=== PATIENT | female | born 1955 | race Caucasian/White ===

== ENCOUNTER 2016-07-14 20:13 | Emergency (ER) | payer BC, OTHER ==
[2016-07-14] MEDS ORDERED: ACETAMINOPHEN 500 MG TABLET PO ONE (20:30)
[2016-07-14] MEDS ORDERED: IBUPROFEN 600 MG TABLET PO ONE (20:34)
--- NOTE | 2016-07-14 21:26 | Emergency Department Record ---
History of Present Illness - General Chief Complaint: Fall Injury Stated Complaint: FELL Time Seen by Provider: 07/14/16 20:19 Source: Patient Mode of Arrival: Ambulatory Limitations: No limitations - History of Present Illness Initial Comments: pt was out folding clothes when she backed up and fell backwards hitting her head on cement. she injured her head and her l arm. no loc MD Complaint: Fall Onset/Timin -: Minutes(s) Fall From: Standing When Fall Occurred: Just prior to arrival Fall Witnessed: Yes, by bystander Place Fall Occurred: Work Loss of Consciousness: None Prolonged Down Time?: No Symptoms Prior to Fall: None Location: Head, Buttocks, Other Location - Extremities: Left: Forearm Severity: Mild Quality: Other Associated Symptoms: Denies - [place] Coma Scale Eye Response: (4) Open spontaneously Motor Response: (6) Obeys commands Verbal Response: (5) Oriented Lehr Total: 15 - Related Data Home Medications Medication Instructions Recorded Confirmed Last Taken Losartan/Hct 100-25 100 mg PO DAILY 11/15/13 07/14/16 07/14/16 Furosemide [Lasix] 20 mg PO DAILY 09/24/14 07/14/16 07/14/16 Tiotropium [place] [Spiriva] 18 mcg IH Q6HR PRN 09/24/14 07/14/16 07/14/16 Previous Rx's Medication Instructions Recorded Cyclobenzaprine HCl [Flexeril] 10 mg PO TID PRN #30 tablet 10/13/15 Allergies Allergy/AdvReac Type Severity Reaction Status Date / Time No Known Drug Intolerances Allergy Unknown NONE Verified 10/09/15 11:46 Travel Screening - Travel/Exposure Within Last 30 Days Have you traveled within the last 30 days?: No - Travel Symptoms Symptom Screening: None Review of Systems Reviewed: No additional complaints except as noted below Constitutional: Reports: As per HPI. Denies: Chills, Fever, Malaise, Night sweats, Weakness, Weight change Eyes: Reports: As per HPI. Denies: Eye discharge, Eye pain, Photophobia, Vision change ENT: Reports: As per HPI. Denies: Congestion, Dental pain, Ear pain, Epistaxis , Hearing loss, Throat pain Respiratory: Reports: As per HPI. Denies: Cough, Dyspnea, Hemoptysis, Stridor, Wheezes Cardiovascular: Reports: As per HPI. Denies: Arrhythmia, Chest pain, Dyspnea on exertion, Edema, Murmurs, Orthopnea, Palpitations, Paroxysmal nocturnal dyspnea, Rheumatic Fever, Syncope Endocrine: Reports: As per HPI. Denies: Fatigue, Heat or cold intolerance, Polydipsia, Polyuria Gastrointestinal: Reports: As per HPI. Denies: Abdominal pain, Constipation, Diarrhea, Hematemesis, Hematochezia, Melena, Nausea, Vomiting Genitourinary: Reports: As per HPI. Denies: Abnormal menses, Discharge, Dyspareunia, Dysuria, Frequency, Hematuria, Incontinence, Retention, Urgency Musculoskeletal: Reports: As per HPI. Denies: Arthralgia, Back pain, Gout, Joint swelling, Myalgia, Neck pain Skin: Reports: As per HPI. Denies: Bruising, Change in color, Change in hair/ nails, Lesions, Pruritus, Rash Neurological: Reports: As per HPI. Denies: Abnormal gait, Confusion, Headache, Numbness, Paresthesias, Seizure, Tingling, Tremors, Vertigo, Weakness Psychiatric: Reports: As per HPI. Denies: Anxiety, Auditory hallucinations, Depression, Homicidal thoughts, Suicidal thoughts, Visual hallucinations Hematological/Lymphatic: Reports: As per HPI. Denies: Anemia, Blood Clots, Easy bleeding, Easy bruising, Swollen glands Past Medical History - SOCIAL HISTORY Smoking Status: Light tobacco smoker (<10/day) Alcohol Use: None Drug Use: None - RESPIRATORY Hx Respiratory Disorders: No - CARDIOVASCULAR Hx Cardio Disorders: Yes Hx Hypertension: Yes - NEURO Hx Neuro Disorders: No - GI Hx GI Disorders: No - Hx Genitourinary Disorders: No - ENDOCRINE Hx Endocrine Disorders: No - MUSCULOSKELETAL Hx Musculoskeletal Disorders: No - PSYCH Hx Psych Problems: No - HEMATOLOGY/ONCOLOGY Hx Hematology/Oncology Disorders: No Family Medical History Any Significant Family History?: Yes Hx Alcohol Use: Father Hx Diabetes: Father Hx HTN: Mother Physical Exam - General General Appearance: Alert, Oriented x3, Cooperative, Mild distress - Head Head exam: Normal inspection Head exam detail: Hematoma - Eye Eye exam: Normal appearance, PERRL, EOMI Pupils: Normal accommodation - ENT ENT exam: Normal exam, Mucous membranes moist, Normal external ear exam, Normal orophraynx Ear exam: Normal external inspection. negative: External canal tenderness Nasal Exam: Normal inspection. negative: Discharge, Sinus tenderness Mouth exam: Normal external inspection, Tongue normal Teeth exam: Normal inspection. negative: Dental caries Throat exam: Normal inspection. negative: Tonsillar erythema, Tonsillar exudate - Neck Neck exam: Normal inspection, Full ROM. negative: Tenderness - Respiratory Respiratory exam: Normal lung sounds bilaterally. negative: Respiratory distress - Cardiovascular Cardiovascular Exam: Regular rate, Normal rhythm, Normal heart sounds - GI/Abdominal GI/Abdominal exam: Soft, Normal bowel sounds. negative: Tenderness - Rectal Rectal exam: Deferred - exam: Deferred - Extremities Extremities exam: Normal inspection, Full ROM, Normal capillary refill, Tenderness (of l forearm w abrasion and ecchymosis) - Back Back exam: Reports: Normal inspection, Full ROM. Denies: Muscle spasm, Rash noted, Tenderness - Neurological Neurological exam: Alert, CN II-XII intact, Normal gait, Oriented X3 - Psychiatric Psychiatric exam: Normal affect, Normal mood - Skin Skin exam: Dry, Intact, Normal color, Warm Course Vital Signs 07/14/16 20:19 Temperature 98.8 F Pulse Rate 101 H Respiratory 20 Rate Blood Pressure 138/79 Pulse Ox 93 L Medical Decision Making - Management Options MDM Management: Additional Work-up Planned (e.g. ADM/Transfer/OP Study) - Data Complexity MDM Data: X-Ray Ordered and/or Reviewed - Radiology Data Radiology results: Report reviewed, Image reviewed Disposition Disposition: Discharge Clinical Impression: Head injury Qualifiers: Encounter type: initial encounter Qualified Code(s): S09.90XA - Unspecified injury of head, initial encounter Contusion of arm, left Qualifiers: Encounter type: initial encounter Qualified Code(s): S40.022A - Contusion of left upper arm, initial encounter Disposition: Home, Self-Care Condition: (1) Good Instructions: Minor Head Injury (ED), Contusion in Adults (ED) Additional Instructions: follow up with occupational health and family doctor. return sooner if worse. tylenol or motrin for pain Forms: Patient Portal Access
== END 2016-07-14 21:34 | disposition home or self-care (01) ==
LOC: ER 20:13
DX: S09.90XA Unspecified injury of head, initial encounter (principal); S40.022A Contusion of left upper arm, initial encounter; W01.0XXA Fall on same level from slipping, tripping and stumbling without subsequent striking against object, initial encounter; Y93.E2 Activity, laundry; Y92.239 Unspecified place in hospital as the place of occurrence of the external cause; Y99.0 Civilian activity done for income or pay
CPT/HCPCS: 70450; 99283

== ENCOUNTER 2016-07-16 14:20 | Emergency (ER) | payer OTHER ==
--- NOTE | 2016-07-16 14:33 | Emergency Department Record ---
History of Present Illness - General Stated Complaint: LEFT ARM PAIN FROM FALL Time Seen by Provider: 07/16/16 14:25 Source: Patient Mode of Arrival: Ambulatory Limitations: No limitations - History of Present Illness Initial Comments: 60 yo female presents after a fall at work on 07/14/16. She tripped on a sidewalk landing hitting her head and left arm. No LOC. She landed on her left forearm as well. Since her initial visit her left forearm has continued to ache and bruise. She had a HCT during the initial visit but no left UE imaging. No weakness or numbness. No abnormal coolness. She is not on anti- coagulants. Complaint: Fall -: Days(s) (2) Fall From: Standing When Fall Occurred: Other Fall Witnessed: Yes, by bystander Place Fall Occurred: Work Loss of Consciousness: None Prolonged Down Time?: No Symptoms Prior to Fall: None Location: Head, Other Location - Extremities: Left: Forearm Quality: Aching Associated Symptoms: Denies - [place] Coma Scale Eye Response: (4) Open spontaneously Motor Response: (6) Obeys commands Verbal Response: (5) Oriented Egan Total: 15 - Related Data Home Medications Medication Instructions Recorded Confirmed Last Taken Losartan/Hct 100-25 100 mg PO DAILY 11/15/13 07/16/16 07/16/16 Furosemide [Lasix] 20 mg PO DAILY 09/24/14 07/16/16 07/16/16 Tiotropium [place] [Spiriva] 18 mcg IH Q6HR PRN 09/24/14 07/16/16 07/16/16 Previous Rx's Medication Instructions Recorded Cyclobenzaprine HCl [Flexeril] 10 mg PO TID PRN #30 tablet 10/13/15 Allergies Allergy/AdvReac Type Severity Reaction Status Date / Time No Known Drug Intolerances Allergy Unknown NONE Verified 07/16/16 14:25 Review of Systems Constitutional: Denies: Chills, Fever, Malaise, Weakness Eyes: Denies: Eye discharge ENT: Denies: Congestion, Throat pain Respiratory: Denies: Cough Cardiovascular: Denies: Chest pain, Palpitations, Syncope Endocrine: Denies: Fatigue Gastrointestinal: Denies: Abdominal pain, Diarrhea, Nausea, Vomiting Genitourinary: Denies: Dysuria, Urgency Musculoskeletal: Reports: Arthralgia, Joint swelling, Myalgia, Neck pain Skin: Reports: As per HPI, Bruising Neurological: Denies: Confusion, Headache, Numbness, Tingling, Tremors, Vertigo , Weakness Psychiatric: Denies: Anxiety Hematological/Lymphatic: Denies: Blood Clots, Easy bleeding, Easy bruising, Swollen glands Past Medical History - SOCIAL HISTORY Smoking Status: Light tobacco smoker (<10/day) Drug Use: None - RESPIRATORY Hx Respiratory Disorders: No - CARDIOVASCULAR Hx Cardio Disorders: Yes Hx Hypertension: Yes - NEURO Hx Neuro Disorders: No - GI Hx GI Disorders: No - Hx Genitourinary Disorders: No - ENDOCRINE Hx Endocrine Disorders: No - MUSCULOSKELETAL Hx Musculoskeletal Disorders: No - PSYCH Hx Psych Problems: No - HEMATOLOGY/ONCOLOGY Hx Hematology/Oncology Disorders: No Family Medical History Hx Alcohol Use: Father Hx Diabetes: Father Hx HTN: Mother Physical Exam - General General Appearance: Alert, Oriented x3, Cooperative Limitations: No limitations - Head Head exam: negative: Atraumatic - Eye Eye exam: PERRL. negative: Conjunctival injection, Scleral icterus - ENT ENT exam: Normal exam Ear exam: Normal external inspection Nasal Exam: Normal inspection Mouth exam: Normal external inspection Teeth exam: Normal inspection Throat exam: Normal inspection - Neck Neck exam: Normal inspection. negative: Tenderness - Respiratory Respiratory exam: Normal lung sounds bilaterally. negative: Respiratory distress - Cardiovascular Cardiovascular Exam: Regular rate, Normal rhythm, Normal heart sounds Peripheral Pulses: 2+: Radial (R) - GI/Abdominal GI/Abdominal exam: Soft - Rectal Rectal exam: Deferred - exam: Deferred - Extremities Extremities exam: Joint swelling, Normal capillary refill, Tenderness. negative : Normal inspection Image of Full Body: 1 - brusing and soft tissue tenderness, full ROM of the albow and werist, no pain with supination or pronation, wrist with full flexion and extension without pain. bruising noted. Strong radial pulse, brisk cap refill. Soft muscle compartment. sensation is intact. - Back Back exam: Reports: Normal inspection, Full ROM. Denies: CVA tenderness (R), CVA tenderness (L), Muscle spasm, Paraspinal tenderness, Rash noted, Tenderness , Vertebral tenderness - Neurological Neurological exam: Alert, Normal gait, Oriented X3 - Psychiatric Psychiatric exam: Normal affect, Normal mood. negative: Anxious, Manic - Skin Skin exam: Dry, Intact, Warm. negative: Normal color (bruising) Course - Reevaluation(s) Reevaluation #1: 07/16/16 14:30 HCT from 07/14 reviewed XR ordered of the left UE Reevaluation #2: No sign of compartment syndrome. Joint above and below forearm full ROM 07/16/16 14:35 Reevaluation #3: The XR was reviewed No acute fracture seen on prelim DC with no lifting or use today. 07/16/16 15:08 Disposition Disposition: Discharge Clinical Impression: Contusion of forearm, left Qualifiers: Encounter type: initial encounter Qualified Code(s): S50.12XA - Contusion of left forearm, initial encounter Disposition: Home, Self-Care Return To Work/School Note Provided: Yes Condition: (1) Good Instructions: Contusion in Adults (ED) Additional Instructions: Elevate the forearm to minimize swelling Return if you have weakness, numbness or any increase in swelling Avoid over use until pain free Off work remainder of today. No lifting or use of the left arm. Time of Disposition: 15:09
== END 2016-07-16 15:05 | disposition home or self-care (01) ==
LOC: ER 14:20
DX: S50.12XA Contusion of left forearm, initial encounter (principal); W01.0XXA Fall on same level from slipping, tripping and stumbling without subsequent striking against object, initial encounter; Y93.E2 Activity, laundry; Y92.239 Unspecified place in hospital as the place of occurrence of the external cause
CPT/HCPCS: 99283

== ENCOUNTER 2016-09-23 13:31 | Emergency (ER) | payer BC ==
[2016-09-23] MEDS ORDERED: KETOROLAC 30 MG/ML VIAL IM ONE (14:31)
[2016-09-23] MEDS ORDERED: HYDROMORPHONE HCL 1 MG/ML CPJ IM ONE (14:31)
[2016-09-23] MEDS ORDERED: PROMETHAZINE HCL 25 MG/ML VIAL IM ONE (14:31)
[2016-09-23] MEDS ORDERED: DIAZEPAM 5 MG/1 ML TUBX IM ONE (14:31)
--- NOTE | 2016-09-23 15:42 | Emergency Department Record ---
History of Present Illness - General Chief Complaint: Back Pain/Injury Stated Complaint: BACK PAIN Time Seen by Provider: 09/23/16 14:28 Source: Patient Mode of Arrival: Ambulatory Limitations: No limitations - History of Present Illness Initial Comments: pt injured back in a fall earlier this year. she is back to work when it has once again flared up. pain is in lower back and radiates down r leg. no problems w bowel or bladder. no numbness MD Complaint: Back pain, Back injury Onset/Timin -: Days(s) Similar Symptoms Previously: Yes Place: Work Radiation: Right leg Severity: Moderate Severity scale (1-10): 8 Quality: Aching Consistency: Constant Improves With: None Worsens With: Walking Context: Unknown Associated Symptoms: Denies other symptoms - Related Data Home Medications Medication Instructions Recorded Confirmed Last Taken Losartan/Hct 100-25 100 mg PO DAILY 11/15/13 09/23/16 09/23/16 Furosemide [Lasix] 20 mg PO DAILY 09/24/14 09/23/16 09/23/16 Tiotropium [place] [Spiriva] 18 mcg IH Q6HR PRN 09/24/14 09/23/16 09/22/16 Methotrexate [place] [Methotrexate] 15 mg PO WEEKLY 28 Days 08/24/16 09/23/16 Unknown Previous Rx's Medication Instructions Recorded Cyclobenzaprine HCl [Flexeril] 10 mg PO TID #10 tablet 09/23/16 Hydrocodone/Acetaminophen [[place] 1 each PO QID #10 tablet 09/23/16 5-325 Tablet] Allergies Allergy/AdvReac Type Severity Reaction Status Date / Time No Known Drug Intolerances Allergy Unknown NONE Verified 09/23/16 13:52 Travel Screening - Travel/Exposure Within Last 30 Days Have you traveled within the last 30 days?: No Review of Systems Reviewed: No additional complaints except as noted below Constitutional: Reports: As per HPI. Denies: Chills, Fever, Malaise, Night sweats, Weakness, Weight change Eyes: Reports: As per HPI. Denies: Eye discharge, Eye pain, Photophobia, Vision change ENT: Reports: As per HPI. Denies: Congestion, Dental pain, Ear pain, Epistaxis , Hearing loss, Throat pain Respiratory: Reports: As per HPI. Denies: Cough, Dyspnea, Hemoptysis, Stridor, Wheezes Cardiovascular: Reports: As per HPI. Denies: Arrhythmia, Chest pain, Dyspnea on exertion, Edema, Murmurs, Orthopnea, Palpitations, Paroxysmal nocturnal dyspnea, Rheumatic Fever, Syncope Endocrine: Reports: As per HPI. Denies: Fatigue, Heat or cold intolerance, Polydipsia, Polyuria Gastrointestinal: Reports: As per HPI. Denies: Abdominal pain, Constipation, Diarrhea, Hematemesis, Hematochezia, Melena, Nausea, Vomiting Genitourinary: Reports: As per HPI. Denies: Abnormal menses, Discharge, Dyspareunia, Dysuria, Frequency, Hematuria, Incontinence, Retention, Urgency Musculoskeletal: Reports: As per HPI. Denies: Arthralgia, Back pain, Gout, Joint swelling, Myalgia, Neck pain Skin: Reports: As per HPI. Denies: Bruising, Change in color, Change in hair/ nails, Lesions, Pruritus, Rash Neurological: Reports: As per HPI. Denies: Abnormal gait, Confusion, Headache, Numbness, Paresthesias, Seizure, Tingling, Tremors, Vertigo, Weakness Psychiatric: Reports: As per HPI. Denies: Anxiety, Auditory hallucinations, Depression, Homicidal thoughts, Suicidal thoughts, Visual hallucinations Hematological/Lymphatic: Reports: As per HPI. Denies: Anemia, Blood Clots, Easy bleeding, Easy bruising, Swollen glands Past Medical History - SOCIAL HISTORY Smoking Status: Light tobacco smoker (<10/day) Alcohol Use: None Drug Use: None - RESPIRATORY Hx Respiratory Disorders: No - CARDIOVASCULAR Hx Cardio Disorders: Yes Hx Hypertension: Yes - NEURO Hx Neuro Disorders: No - GI Hx GI Disorders: No - Hx Genitourinary Disorders: No - ENDOCRINE Hx Endocrine Disorders: No - MUSCULOSKELETAL Hx Musculoskeletal Disorders: No - PSYCH Hx Psych Problems: No - HEMATOLOGY/ONCOLOGY Hx Hematology/Oncology Disorders: No Family Medical History Any Significant Family History?: Yes Hx Alcohol Use: Father Hx Diabetes: Father Hx HTN: Mother Physical Exam - General General Appearance: Alert, Oriented x3, Cooperative, Mild distress - Head Head exam: Normal inspection - Eye Eye exam: Normal appearance, PERRL, EOMI Pupils: Normal accommodation - ENT ENT exam: Normal exam, Mucous membranes moist, Normal external ear exam, Normal orophraynx Ear exam: Normal external inspection. negative: External canal tenderness Nasal Exam: Normal inspection. negative: Discharge, Sinus tenderness Mouth exam: Normal external inspection, Tongue normal Teeth exam: Normal inspection. negative: Dental caries Throat exam: Normal inspection. negative: Tonsillar erythema, Tonsillar exudate - Neck Neck exam: Normal inspection, Full ROM. negative: Tenderness - Respiratory Respiratory exam: Normal lung sounds bilaterally. negative: Respiratory distress - Cardiovascular Cardiovascular Exam: Regular rate, Normal rhythm, Normal heart sounds - GI/Abdominal GI/Abdominal exam: Soft, Normal bowel sounds. negative: Tenderness - Rectal Rectal exam: Deferred - exam: Deferred - Extremities Extremities exam: Normal inspection, Full ROM, Normal capillary refill. negative: Tenderness - Back Back exam: Reports: Muscle spasm, Paraspinal tenderness, Tenderness. Denies: Full ROM, Rash noted - Neurological Neurological exam: Alert, Normal gait, Oriented X3, Reflexes normal - Psychiatric Psychiatric exam: Normal affect, Normal mood - Skin Skin exam: Dry, Intact, Normal color, Warm Course Vital Signs 09/23/16 09/23/16 13:48 15:34 Temperature 98.9 F Pulse Rate 93 H Pulse Rate [ 89 Pulse Ox Probe] Respiratory 20 16 Rate Blood Pressure 177/85 Blood Pressure 132/76 [Left Arm] Pulse Ox 97 92 L Disposition Disposition: Discharge (radicu) Clinical Impression: Radiculopathy Qualifiers: Spinal region: lumbosacral Qualified Code(s): M54.17 - Radiculopathy, lumbosacral region Disposition: Home, Self-Care Condition: (1) Good Instructions: Lumbar Radiculopathy (ED) Additional Instructions: follow up with family doctor and with occupational health. return sooner if worse. ice and rest. no lifting more then 5 lbs for 5 days Prescriptions: Cyclobenzaprine HCl [Flexeril] 10 mg PO TID #10 tablet Hydrocodone/Acetaminophen [[place] 5-325 Tablet] 1 each PO QID #10 tablet Forms: Patient Portal Access Quality - Quality Measures Quality Measures: N/A - Blood Pressure Screening Blood Pressure Classification: Pre-Hypertensive BP Reading Systolic Measurement: 177 Diastolic Measurement: 85 Screening for High Blood Pressure: < First Hypertensive BP, F/U Documented > [ [id number]] First Hypertensive Follow-up Interventions: Follow-up with rescreen GT 1 day and LT 4 weeks.
== END 2016-09-23 16:50 | disposition home or self-care (01) ==
LOC: ER 13:31
DX: M54.17 Radiculopathy, lumbosacral region (principal); I10 Essential (primary) hypertension; F17.210 Nicotine dependence, cigarettes, uncomplicated
CPT/HCPCS: 99283; 96372; 99285; J1885; J1170; J2550; J3360

== ENCOUNTER 2017-04-10 13:25 | Emergency (ER) | payer BC ==
[2017-04-10 14:20] LABS: BASO % 0.6 % (0-6); EOS % 1.2 % (0-6); GRAN % 64.2 % (47-80); HEMATOCRIT 40.5 % (35.0-47.0); HEMOGLOBIN 13.4 gm/dl (11.6-16.0); LYMPH % 20.9 % (16-45); MEAN CELL VOLUME 90.8 fl (81-97); MEAN CORPUSCULAR HGB CONC 33.1 g/dl (32-36); MONO % 13.1 % (0-9); PLATELET COUNT 269 K/uL (130-400); RED BLOOD COUNT 4.46 M/uL (3.80-5.40); RED CELL DISTRIBUTION WIDTH 13.1 % (11.5-14.5); WHITE BLOOD COUNT W/O DIFF 5.1 K/uL (4.2-12.2)
[2017-04-10 14:35] LABS: BLOOD UREA NITROGEN 12 mg/dL (8-23); CREATININE 0.5 mg/dL (0.5-0.9); EST GLOMERULAR FILTRATION RATE > 60 mL/min
[2017-04-10 14:36] LABS: TOTAL PROTEIN 7.3 g/dL (6.6-8.7)
[2017-04-10 14:38] LABS: GLUCOSE,RANDOM 108 mg/dL (74-109); INFLUENZA A NEGATIVE (NEGATIVE); INFLUENZA B NEGATIVE (NEGATIVE)
[2017-04-10 14:40] LABS: ALT/SGPT 25 U/L (<33)
[2017-04-10 14:41] LABS: ALB/GLOB RATIO 1.6 (1.1-1.8); ALBUMIN 4.5 g/dL (4.0-5.0); ALKALINE PHOSPHATASE 100 U/L (35-104); AST/SGOT 19 U/L (10.0-35.0)
--- NOTE | 2017-04-10 14:58 | Emergency Department Record ---
History of Present Illness - General Chief complaint: Flu Like Symptoms Stated complaint: VOMITTING,NAUSEA,BODY ACHES, Time Seen by Provider: 04/10/17 13:51 Source: Patient Mode of Arrival: Ambulatory - History of Present Illness Initial comments: pt c/o n/v, cough, body aches MD Complaint: Lack of energy Onset/Timin -: Days(s) Location: Generalized Severity scale (1-10): 5 Quality: Aching Consistency: Constant Improves with: None Worsens with: None Context: Other Associated Symptoms: Headaches, Nausea/vomiting - [place] Coma Scale Eye Response: (4) Open spontaneously Motor Response: (6) Obeys commands Verbal Response: (5) Oriented [place] Total: 15 - Symptoms of Stroke Baseline State: Baseline State - Related Data Previous Rx's Medication Instructions Recorded Ondansetron [Zofran Odt] 4 mg PO Q8H #10 tab.rapdis 04/10/17 Allergies Allergy/AdvReac Type Severity Reaction Status Date / Time No Known Drug Intolerances Allergy Unknown NONE Verified 04/10/17 13:39 Travel Screening - Travel/Exposure Within Last 30 Days Have you traveled within the last 30 days?: No - Travel/Exposure Within Last Year Have you traveled outside the [place] in the last year?: No - Additonal Travel Details Have you been exposed to anyone with a communicable illness?: No - Travel Symptoms Symptom Screening: None Review of Systems Reviewed: No additional complaints except as noted below Constitutional: Reports: As per HPI. Denies: Chills, Fever, Malaise, Night sweats, Weakness, Weight change Eyes: Reports: As per HPI. Denies: Eye discharge, Eye pain, Photophobia, Vision change ENT: Reports: As per HPI. Denies: Congestion, Dental pain, Ear pain, Epistaxis , Hearing loss, Throat pain Respiratory: Reports: As per HPI. Denies: Cough, Dyspnea, Hemoptysis, Stridor, Wheezes Cardiovascular: Reports: As per HPI. Denies: Arrhythmia, Chest pain, Dyspnea on exertion, Edema, Murmurs, Orthopnea, Palpitations, Paroxysmal nocturnal dyspnea, Rheumatic Fever, Syncope Endocrine: Reports: As per HPI. Denies: Fatigue, Heat or cold intolerance, Polydipsia, Polyuria Gastrointestinal: Reports: As per HPI. Denies: Abdominal pain, Constipation, Diarrhea, Hematemesis, Hematochezia, Melena, Nausea, Vomiting Genitourinary: Reports: As per HPI. Denies: Abnormal menses, Discharge, Dyspareunia, Dysuria, Frequency, Hematuria, Incontinence, Retention, Urgency Musculoskeletal: Reports: As per HPI. Denies: Arthralgia, Back pain, Gout, Joint swelling, Myalgia, Neck pain Skin: Reports: As per HPI. Denies: Bruising, Change in color, Change in hair/ nails, Lesions, Pruritus, Rash Neurological: Reports: As per HPI. Denies: Abnormal gait, Confusion, Headache, Numbness, Paresthesias, Seizure, Tingling, Tremors, Vertigo, Weakness Psychiatric: Reports: As per HPI. Denies: Anxiety, Auditory hallucinations, Depression, Homicidal thoughts, Suicidal thoughts, Visual hallucinations Hematological/Lymphatic: Reports: As per HPI. Denies: Anemia, Blood Clots, Easy bleeding, Easy bruising, Swollen glands Past Medical History - SOCIAL HISTORY Smoking Status: Light tobacco smoker (<10/day) Alcohol Use: None Drug Use: None - RESPIRATORY Hx Respiratory Disorders: No - CARDIOVASCULAR Hx Cardio Disorders: Yes Hx Hypertension: Yes - NEURO Hx Neuro Disorders: No - GI Hx GI Disorders: No - Hx Genitourinary Disorders: No - ENDOCRINE Hx Endocrine Disorders: No - MUSCULOSKELETAL Hx Musculoskeletal Disorders: No - PSYCH Hx Psych Problems: No - HEMATOLOGY/ONCOLOGY Hx Hematology/Oncology Disorders: No Family Medical History Any Significant Family History?: No Hx Alcohol Use: Father Hx Diabetes: Father Hx HTN: Mother Physical Exam - General General Appearance: Alert, Oriented x3, Cooperative, Mild distress - Head Head exam: Normal inspection - Eye Eye exam: Normal appearance, PERRL, EOMI Pupils: Normal accommodation - ENT ENT exam: Normal exam, Mucous membranes moist, Normal external ear exam, Normal orophraynx, TM's normal bilaterally Ear exam: Normal external inspection. negative: External canal tenderness Nasal Exam: Normal inspection. negative: Discharge, Sinus tenderness Mouth exam: Normal external inspection, Tongue normal Teeth exam: Normal inspection. negative: Dental caries Throat exam: Normal inspection. negative: Tonsillar erythema, Tonsillar exudate - Neck Neck exam: Normal inspection, Full ROM. negative: Tenderness - Respiratory Respiratory exam: Normal lung sounds bilaterally. negative: Respiratory distress - Cardiovascular Cardiovascular Exam: Regular rate, Normal rhythm, Normal heart sounds - GI/Abdominal GI/Abdominal exam: Soft, Normal bowel sounds. negative: Tenderness - Rectal Rectal exam: Deferred - exam: Deferred - Extremities Extremities exam: Normal inspection, Full ROM, Normal capillary refill. negative: Tenderness - Back Back exam: Reports: Normal inspection, Full ROM. Denies: Muscle spasm, Rash noted, Tenderness - Neurological Neurological exam: Alert, CN II-XII intact, Normal gait, Oriented X3 - Psychiatric Psychiatric exam: Normal affect, Normal mood - Skin Skin exam: Dry, Intact, Normal color, Warm Course Vital Signs 04/10/17 13:27 Temperature 98.6 F Pulse Rate 89 Respiratory 20 Rate Blood Pressure 127/77 Pulse Ox 94 L Medical Decision Making - Lab Data Result diagrams: 04/10/17 14:10 04/10/17 14:10 Lab Results 04/10/17 04/10/17 04/10/17 Range/Units 14:10 14:10 14:10 WBC 5.1 (4.2-12.2) K/uL RBC 4.46 (3.80-5.40) M/uL Hgb 13.4 (11.6-16.0) gm/dl Hct 40.5 (35.0-47.0) % MCV 90.8 (81-97) fl MCH 30.0 (27-33) pg MCHC 33.1 (32-36) g/dl RDW 13.1 (11.5-14.5) % Plt Count 269 (130-400) K/uL MPV 10.0 (7.4-10.4) fl Gran % 64.2 (47-80) % Lymphocytes % 20.9 (16-45) % Monocytes % 13.1 H (0-9) % Eosinophils % 1.2 (0-6) % Basophils % 0.6 (0-6) % Sodium 143 (136-145) mmol/L Potassium 3.6 (3.4-4.5) mmol/L Chloride 102 (98-107) mmol/L Carbon Dioxide 28.0 (22-29) mmol/L Anion Gap 13.0 (7-16) BUN 12 (8-23) mg/dL Creatinine 0.5 (0.5-0.9) mg/dL Estimated GFR > 60 mL/min Random Glucose 108 (74-109) mg/dL Calcium 9.3 (8.8-10.2) mg/dL Total Bilirubin 0.30 (0.2-1.0) mg/dL AST 19 (10.0-35.0) U/L ALT 25 (<33) U/L Alkaline Phosphatase 100 (35-104) U/L Total Protein 7.3 (6.6-8.7) g/dL Albumin 4.5 (4.0-5.0) g/dL Globulin 2.8 (1.4-4.8) gm/dL Albumin/Globulin Ratio 1.6 (1.1-1.8) Influenza Type A Ag Negative (NEGATIVE) Influenza Type B Ag Negative (NEGATIVE) Disposition Disposition: Discharge Clinical Impression: Viral syndrome Nausea & vomiting Qualifiers: Vomiting type: unspecified Vomiting Intractability: non-intractable Qualified Code(s): R11.2 - Nausea with vomiting, unspecified Disposition: Home, Self-Care Condition: (1) Good Instructions: Viral Syndrome (ED), Acute Nausea and Vomiting (ED) Additional Instructions: follow up with family doctor. rest push fluids. return sooner if worse Prescriptions: Ondansetron [Zofran Odt] 4 mg PO Q8H #10 tab.rapdis Forms: Patient Portal Access, Return to Work/School Quality - Quality Measures Quality Measures: N/A - Blood Pressure Screening Does Patient Have Any of the Following: No Blood Pressure Classification: Pre-Hypertensive BP Reading Systolic Measurement: 127 Diastolic Measurement: 77 Screening for High Blood Pressure: < Pre-Hypertensive BP, F/U Documented > [ G8950] Pre-Hypertensive Follow-up Interventions: Follow-up with rescreen every year.
--- NOTE | 2017-04-11 07:53 | RADIOLOGY REPORT ---
EXAM: CHEST, TWO VIEWS HISTORY: CHEST PAIN. TECHNIQUE: Frontal and lateral views of the chest were obtained. Comparison: None. FINDINGS: The heart size is normal. Atheromatous change of the thoracic aorta. Osteopenia. Stimulating wires project posteriorly. The lungs are clear. No pneumothorax. IMPRESSION: NO ACUTE CARDIOPULMONARY PROCESS. JOB NUMBER: [id number] MTDD
== END 2017-04-10 15:01 | disposition home or self-care (01) ==
LOC: ER 13:25
DX: B34.9 Viral infection, unspecified (principal); R05 Cough; R11.2 Nausea with vomiting, unspecified; I10 Essential (primary) hypertension; F17.210 Nicotine dependence, cigarettes, uncomplicated
CPT/HCPCS: 71046; 80053; 85025; 87400; 99283; 99284

== ENCOUNTER 2017-04-11 17:28 | Emergency (ER) | payer BC ==
[2017-04-11] MEDS ORDERED: ACETAMINOPHEN 500 MG TABLET PO ONE (18:39)
[2017-04-11] MEDS ORDERED: IPRATROPIUM/ALBUTEROL (0.5MG/3MG) NEB INH ONE (18:41)
--- NOTE | 2017-04-11 18:43 | Emergency Department Record ---
History of Present Illness - General Chief complaint: Flu Like Symptoms Stated complaint: BODY ACHES,CHILLS,CHEST/SINUS CONGESTION, Time Seen by Provider: 04/11/17 18:38 Source: Patient Mode of Arrival: Ambulatory Limitations: No limitations - History of Present Illness Initial comments: 61 yo female presents to ED for evaluation of generalized weakness, cough, and congestion symptoms for the past 1-2 days. Patient reports recent influenza exposure, denies urinary symptoms, abdominal pain, nausea, or vomiting symptoms. Patient reports subjective fever and chills as home as well. Patient denies chest pain symptoms. MD Complaint: Generalized weakness Onset/Timin -: Days(s) Location: Generalized Severity: Moderate Severity scale (1-10): 7 Quality: Aching Consistency: Constant Improves with: None Worsens with: None Context: History of similar, Recent illness Associated Symptoms: Fever/chills, Myalgias - [place] Coma Scale Eye Response: (4) Open spontaneously Motor Response: (6) Obeys commands Verbal Response: (5) Oriented [place] Total: 15 - Related Data Previous Rx's Medication Instructions Recorded Ondansetron [Zofran Odt] 4 mg PO Q8H #10 tab.rapdis 04/10/17 Doxycycline Hyclate [Doxycycline] 100 mg PO BID #18 tab 04/11/17 Allergies Allergy/AdvReac Type Severity Reaction Status Date / Time No Known Drug Intolerances Allergy Unknown NONE Verified 04/11/17 18:24 Travel Screening - Travel/Exposure Within Last 30 Days Have you traveled within the last 30 days?: No - Travel/Exposure Within Last Year Have you traveled outside the [place] in the last year?: No - Additonal Travel Details Have you been exposed to anyone with a communicable illness?: No - Travel Symptoms Symptom Screening: None Review of Systems Constitutional: Reports: Chills, Fever, Malaise, Weakness. Denies: Night sweats Eyes: Denies: Eye discharge, Eye pain ENT: Reports: Congestion. Denies: Ear pain, Epistaxis Respiratory: Reports: Cough, Dyspnea Cardiovascular: Denies: Chest pain, Dyspnea on exertion, Edema Endocrine: Reports: Fatigue. Denies: Heat or cold intolerance Gastrointestinal: Denies: Constipation, Diarrhea, Vomiting Genitourinary: Denies: Incontinence, Retention Musculoskeletal: Denies: Arthralgia, Back pain, Gout, Joint swelling Skin: Denies: Bruising, Change in color Neurological: Denies: Abnormal gait, Confusion, Headache, Seizure Psychiatric: Denies: Anxiety Hematological/Lymphatic: Denies: Anemia, Blood Clots Past Medical History - SOCIAL HISTORY Smoking Status: Light tobacco smoker (<10/day) Alcohol Use: None Drug Use: None - RESPIRATORY Hx Respiratory Disorders: No - CARDIOVASCULAR Hx Cardio Disorders: Yes Hx Hypertension: Yes - NEURO Hx Neuro Disorders: No - GI Hx GI Disorders: No - Hx Genitourinary Disorders: No - ENDOCRINE Hx Endocrine Disorders: No - MUSCULOSKELETAL Hx Musculoskeletal Disorders: No - PSYCH Hx Psych Problems: No - HEMATOLOGY/ONCOLOGY Hx Hematology/Oncology Disorders: No Family Medical History Any Significant Family History?: Yes Hx Alcohol Use: Father Hx Diabetes: Father Hx HTN: Mother Physical Exam - General General Appearance: Alert, Oriented x3, Cooperative, Moderate distress Limitations: No limitations - Head Head exam: Atraumatic, Normocephalic, Normal inspection Head exam detail: negative: Abrasion, Contusion, Wynne's sign, General tenderness, Hematoma, Laceration - Eye Eye exam: Normal appearance. negative: Conjunctival injection, Periorbital swelling, Periorbital tenderness, Scleral icterus - ENT Ear exam: negative: Auricular hematoma, Auricular trauma Nasal Exam: negative: Active bleeding, Discharge, Dried blood, Foreign body Mouth exam: negative: Drooling, Laceration, Muffled voice, Tongue elevation - Neck Neck exam: Normal inspection. negative: Meningismus, Tenderness - Respiratory Respiratory exam: Decreased breath sounds, Prolonged expiratory, Wheezes. negative: Respiratory distress, Rhonchi, Stridor - Cardiovascular Cardiovascular Exam: Regular rate, Normal rhythm, Normal heart sounds - GI/Abdominal GI/Abdominal exam: Soft. negative: Rebound, Rigid, Tenderness - Rectal Rectal exam: Deferred - exam: Deferred - Extremities Extremities exam: Normal inspection. negative: Pedal edema, Tenderness - Back Back exam: Denies: CVA tenderness (R), CVA tenderness (L) - Neurological Neurological exam: Alert, Normal gait, Oriented X3 - Psychiatric Psychiatric exam: Normal affect, Normal mood - Skin Skin exam: Normal color. negative: Abrasion Type of lesion: negative: abrasion Course Vital Signs 04/11/17 18:20 Temperature 99.7 F H Pulse Rate 107 H Respiratory 20 Rate Blood Pressure 183/97 Pulse Ox 94 L - Reevaluation(s) Reevaluation #1: 04/11/17 18:55 EKG: NSR 94 Normal axis, normal intervals Borderline SXT depression V5-V6 Reevaluation #2: 04/11/17 19:44 Labs reviewed and are grossly unremarkable for an acute process. Vitals reviewed: Temperature improved to 98.6, pulse 96 (improved from 107), 93 % RA. CXR reviewed from 04/10/17: No acute process Patient reports that she is feeling much better, will prescribe Doxycycline for URI symptoms to be filled if symptoms fail to improve in 34-48 hours. Patient agrees with the plan as discussed. Medical Decision Making - Lab Data Result diagrams: 04/11/17 19:02 04/11/17 19:02 Disposition Disposition: Discharge Clinical Impression: Viral syndrome Disposition: Home, Self-Care Condition: (2) Stable Instructions: Viral Syndrome (ED) Additional Instructions: Return to ED if your symptoms worsen or if you have any concerns. Doxycycline as directed. Follow-up with your family doctor in 3-5 days as directed. Prescriptions: Doxycycline Hyclate [Doxycycline] 100 mg PO BID #18 tab Forms: Patient Portal Access Time of Disposition: 20:43 Quality - Quality Measures Quality Measures: N/A - Blood Pressure Screening Does Patient Have Any of the Following: No Blood Pressure Classification: Hypertensive Reading Systolic Measurement: 183 Diastolic Measurement: 97 Screening for High Blood Pressure: < First Hypertensive BP, F/U Documented > [ G8950] First Hypertensive Follow-up Interventions: Referral to alternative/primary care provider.
[2017-04-11] MEDS ORDERED: 0.9 % SODIUM CHLORIDE 1000ML 1,000 ML IV SCH (18:45)
[2017-04-11 18:58] LABS: URINE APPEARANCE CLEAR; URINE BILIRUBIN NEGATIVE (NEGATIVE); URINE BLOOD NEGATIVE (NEGATIVE); URINE COLOR YELLOW; URINE GLUCOSE (UA) NEGATIVE (NEGATIVE); URINE KETONE NEGATIVE (NEGATIVE); URINE LEUKOCYTE ESTERASE NEGATIVE (NEGATIVE); URINE NITRITE NEGATIVE (NEGATIVE); URINE PROTEIN NEGATIVE (NEGATIVE); URINE UROBILINOGEN 0.2 E.U./dL (0.20 - 1.00)
[2017-04-11 19:10] LABS: BASO % 0.4 % (0-6); GRAN % 76.4 % (47-80); HEMATOCRIT 40.1 % (35.0-47.0); HEMOGLOBIN 13.2 gm/dl (11.6-16.0); LYMPH % 13.1 % (16-45); MEAN CELL VOLUME 91.1 fl (81-97); MEAN CORPUSCULAR HGB CONC 32.9 g/dl (32-36); MEAN PLATELET VOLUME 9.8 fl (7.4-10.4); MONO % 10.1 % (0-9); PLATELET COUNT 252 K/uL (130-400); RED CELL DISTRIBUTION WIDTH 13.1 % (11.5-14.5); WHITE BLOOD COUNT W/O DIFF 7.3 K/uL (4.2-12.2)
[2017-04-11 19:20] LABS: BLOOD UREA NITROGEN 11 mg/dL (8-23); CREATININE 0.6 mg/dL (0.5-0.9); EST GLOMERULAR FILTRATION RATE > 60 mL/min; TOTAL PROTEIN 7.6 g/dL (6.6-8.7)
[2017-04-11 19:22] LABS: GLUCOSE,RANDOM 106 mg/dL (74-109)
[2017-04-11 19:25] LABS: ALB/GLOB RATIO 1.5 (1.1-1.8); ALBUMIN 4.5 g/dL (4.0-5.0); ALKALINE PHOSPHATASE 97 U/L (35-104); ALT/SGPT 24 U/L (<33); AST/SGOT 21 U/L (10.0-35.0); CREATINE PHOSPHOKINASE 144 U/L (26-192)
[2017-04-11 19:27] LABS: CKMB 1.9 ng/mL (<3.77)
== END 2017-04-11 20:49 | disposition home or self-care (01) ==
LOC: ER 17:28
DX: B34.9 Viral infection, unspecified (principal); R53.1 Weakness; R05 Cough; I10 Essential (primary) hypertension; F17.210 Nicotine dependence, cigarettes, uncomplicated
CPT/HCPCS: 80053; 81003; 82550; 82553; 84484; 85025; 93005; 93010; 94640; 99284; J7030

== ENCOUNTER 2017-12-02 14:00 | Emergency (ER) | payer BC ==
[2017-12-02] MEDS ORDERED: AZITHROMYCIN 500 MG TABLET PO ONE (14:22)
[2017-12-02] MEDS ORDERED: METHYLPREDNISOLONE 80MG/VIAL IM ONE (14:22)
[2017-12-02] MEDS ORDERED: BENZONATATE 100 MG CAPSULE PO ONE (14:23)
--- NOTE | 2017-12-02 14:28 | Emergency Department Record ---
History of Present Illness - General Chief Complaint: Cough Stated Complaint: COUGH,CHEST HURTS AND STUFFY NOSE Time Seen by Provider: 12/02/17 14:17 Source: Patient Mode of Arrival: Ambulatory Limitations: No limitations - History of Present Illness Initial Comments: 62 yo female presents with a cough, congestion, and wheezing. She has a grandson around her who has been ill as well. She states her cough is productive with yellow sputum. No blood in the sputum. No fevers. She has nasal congestion but little drainage from the nose. She has a sore throat and it hurts to cough. No fever. She uses Spiriva at home. No nausea, vomiting or edema. MD Complaint: Cough, Nasal congestion, Rhinorrhea Onset/Timin -: Days(s) (1) Severity: Moderate Quality: Burning Consistency: Constant Improves With: Nothing Worsens With: Other (Cough) Context: Sick contacts Associated Symptoms: Cough, Nasal congestion Treatments Prior to Arrival: None - Related Data Home Medications Medication Instructions Recorded Confirmed Last Taken Adalimumab [Humira] 10 mg SQ WEEKLY 12/02/17 12/02/17 Unknown Previous Rx's Medication Instructions Recorded Azithromycin [Zithromax] 250 mg PO DAILY #4 tab 12/02/17 Benzonatate [Tessalon Perle] 100 mg PO QID #20 capsule 12/02/17 Allergies Allergy/AdvReac Type Severity Reaction Status Date / Time No Known Drug Intolerances Allergy Unknown NONE Unverified 06/17/17 19:32 Travel Screening - Travel/Exposure Within Last 30 Days Have you traveled within the last 30 days?: No - Travel/Exposure Within Last Year Have you traveled outside the [place] in the last year?: No - Additonal Travel Details Have you been exposed to anyone with a communicable illness?: No - Travel Symptoms Symptom Screening: None Past Medical History - SOCIAL HISTORY Smoking Status: Light tobacco smoker (<10/day) Alcohol Use: None Drug Use: None - RESPIRATORY Hx Respiratory Disorders: Yes Hx Bronchitis: Yes Comment:: uses an inhaler - CARDIOVASCULAR Hx Cardio Disorders: Yes Hx Edema: Yes (in the summer) Hx Hypertension: Yes Comment:: on cholesterol rx - NEURO Hx Neuro Disorders: No - GI Hx GI Disorders: Yes Hx Reflux: Yes Hx of Polyps: Yes Comment:: diarrhea after eating since gallbladder removed - Hx Genitourinary Disorders: No - ENDOCRINE Hx Endocrine Disorders: No - MUSCULOSKELETAL Hx Musculoskeletal Disorders: Yes Hx Arthritis: Yes (RA) Hx Back Injury: Yes (2017) - PSYCH Hx Psych Problems: No - HEMATOLOGY/ONCOLOGY Hx Hematology/Oncology Disorders: No Family Medical History Any Significant Family History?: No Hx Alcohol Use: Father Hx Cancer: Brother/Sister *Cancer Comment: sister-age 22 uterine Hx Dementia: Mother Hx Diabetes: Father Hx Heart Disease: Mother *Heart Comment: CHF Hx HTN: Mother Hx Resp Disorders: Mother *Resp Comment: lung mass- no cancer Physical Exam - General General Appearance: Alert, Oriented x3, Cooperative, No acute distress, Other ( Calm breathing, normal work of breathing) - Head Head exam: Atraumatic, Normal inspection - Eye Eye exam: Normal appearance. negative: Conjunctival injection, Scleral icterus - ENT ENT exam: Mucous membranes moist, Normal orophraynx, TM's normal bilaterally. negative: Mucous membranes dry Ear exam: Normal external inspection Nasal Exam: Discharge (clear, mild). negative: Dried blood Mouth exam: Normal external inspection Teeth exam: Other Throat exam: Normal inspection. negative: Tonsillar erythema, Tonsillomegaly, Tonsillar exudate, R peritonsillar mass, L peritonsillar mass - Neck Neck exam: Normal inspection, Full ROM. negative: Tenderness - Respiratory Respiratory exam: Decreased breath sounds, Prolonged expiratory, Rhonchi, Wheezes. negative: Normal lung sounds bilaterally, Accessory muscle use, Respiratory distress, Stridor - Cardiovascular Cardiovascular Exam: Regular rate, Normal rhythm, Normal heart sounds Peripheral Pulses: 2+: Radial (R), Radial (L) - GI/Abdominal GI/Abdominal exam: Soft. negative: Tenderness - Rectal Rectal exam: Deferred - exam: Deferred - Extremities Extremities exam: Normal inspection. negative: Pedal edema - Back Back exam: Denies: CVA tenderness (R), CVA tenderness (L) - Neurological Neurological exam: Alert, Oriented X3 - Psychiatric Psychiatric exam: Normal affect, Normal mood - Skin Skin exam: Dry, Intact, Normal color, Warm Course Vital Signs 12/02/17 14:06 Temperature 98.2 F Pulse Rate 90 Respiratory 16 Rate Blood Pressure 142/79 Pulse Ox 96 - Reevaluation(s) Reevaluation #1: Vitals reviewed No acute changes Mild expiratory wheeze, normal work of breathing. 09/28/18 14:29 The CXR was reviewed. Prelim no acute infiltrate. The patient is doing well after the Duoneb She was provided Albuterol MDI with spacer (teach and dispense with RT) Antibiotics and Tessalon given 12/02/17 15:24 Disposition Disposition: Discharge Clinical Impression: Bronchitis, Wheezing Disposition: Home, Self-Care Condition: (1) Good Instructions: Acute Bronchitis (ED) Additional Instructions: Take the prescriptions provided today as directed. Call your family doctor. Call to schedule the next available appointment for a recheck. Return to ED if your symptoms worsen or if you have any new concerns. Review the final Emergency Record and test results with your doctor on follow up Prescriptions: Azithromycin [Zithromax] 250 mg PO DAILY #4 tab Benzonatate [Tessalon Perle] 100 mg PO QID #20 capsule Forms: Patient Portal Access Time of Disposition: 15:45 Quality - Quality Measures Quality Measures: N/A - Blood Pressure Screening Does Patient Have Any of the Following: No Blood Pressure Classification: Pre-Hypertensive BP Reading Systolic Measurement: 120 Diastolic Measurement: 59 Screening for High Blood Pressure: < Pre-Hypertensive BP, F/U Documented > [ G8950] Pre-Hypertensive Follow-up Interventions: Referral to alternative/primary care provider.
[2017-12-02] MEDS ORDERED: IPRATROPIUM/ALBUTEROL (0.5MG/3MG) NEB INH ONE (14:32)
[2017-12-02] MEDS ORDERED: ALBUTEROL HFA 8 GM INHALER INH ONE (14:59)
--- NOTE | 2017-12-05 09:03 | RADIOLOGY REPORT ---
EXAM: CHEST, TWO VIEWS HISTORY: DIFFICULTY IN BREATHING. TECHNIQUE: Frontal and lateral views of the chest were performed. Comparison: 06/24/17. FINDINGS: The heart size is normal. No pulmonary vascular congestion. No infiltrate or pleural effusion. Degenerative change of the thoracic spine. IMPRESSION: NO ACUTE PULMONARY DISEASE PROCESS. JOB NUMBER: [id number] MTDD
== END 2017-12-02 15:52 | disposition home or self-care (01) ==
LOC: ER 14:00
DX: J20.9 Acute bronchitis, unspecified (principal); R06.00 Dyspnea, unspecified; R06.02 Shortness of breath; I10 Essential (primary) hypertension; F17.210 Nicotine dependence, cigarettes, uncomplicated
CPT/HCPCS: 71046; 94640; 94664; 96372; 99283; 99284; J1040

== ENCOUNTER 2017-12-05 12:36 | Emergency (ER) | payer BC ==
[2017-12-05] MEDS ORDERED: SODIUM CHLORIDE 0.9% 500 ML IV ONE (12:50)
[2017-12-05] MEDS ORDERED: ONDANSETRON HCL IV 4 MG/2 ML VIAL IVP ONE (12:50)
--- NOTE | 2017-12-05 12:56 | Emergency Department Record ---
History of Present Illness - General Chief Complaint: Difficulty Breathing Stated Complaint: TONY, Time Seen by Provider: 12/05/17 12:48 Source: Patient Mode of Arrival: Ambulatory Limitations: No limitations - History of Present Illness Initial Comments: 62 yo female presents with cough, congestion, runny nose, poor appetite and a few episodes of diarrhea. No fevers. She was seen with the upper respiratory symptoms last Tuesday. The onset was last . The respiratory symptoms continue including yellow sputum. No blood. The diarrhea has occurred with hard coughing spells. No chest pain. Her nose is raw and her throat is as well. No vomiting. No blood in the diarrhea. She is on Azithromycin. MD Complaint: Cough Onset/Timin -: Days(s) Severity: Moderate Quality: Aching Consistency: Constant Improves With: Nothing Worsens With: Coughing Known History Of: COPD Context: Recent illness, Recent URI, Other (sick contacts) Associated Symptoms: Cough Treatments Prior to Arrival: Bronchodilator - Related Data Previous Rx's Medication Instructions Recorded Azithromycin [Zithromax] 250 mg PO DAILY #4 tab 12/02/17 Benzonatate [Tessalon [place]] 100 mg PO QID #20 capsule 12/02/17 Acetaminop W/ Codeine 300/30Mg 1 tab PO Q6H #12 tab 12/05/17 [Tylenol #3] Allergies Allergy/AdvReac Type Severity Reaction Status Date / Time No Known Drug Intolerances Allergy Unknown NONE Verified 12/05/17 12:47 Travel Screening - Travel/Exposure Within Last 30 Days Have you traveled within the last 30 days?: No - Travel/Exposure Within Last Year Have you traveled outside the [place] in the last year?: No - Additonal Travel Details Have you been exposed to anyone with a communicable illness?: No - Travel Symptoms Symptom Screening: None Review of Systems Constitutional: Reports: Malaise. Denies: Chills, Fever Eyes: Denies: Eye discharge ENT: Reports: Congestion, Throat pain. Denies: Ear pain Respiratory: Reports: Cough. Denies: Dyspnea, Hemoptysis, Stridor, Wheezes Cardiovascular: Denies: Dyspnea on exertion, Syncope Endocrine: Reports: Fatigue Gastrointestinal: Reports: Diarrhea. Denies: Abdominal pain, Nausea, Vomiting Genitourinary: Denies: Dysuria, Urgency Musculoskeletal: Denies: Arthralgia, Back pain, Joint swelling, Myalgia Skin: Denies: Bruising, Change in color, Rash Neurological: Denies: Headache, Numbness, Weakness Psychiatric: Denies: Anxiety Hematological/Lymphatic: Denies: Easy bleeding, Easy bruising Past Medical History - SOCIAL HISTORY Smoking Status: Light tobacco smoker (<10/day) Alcohol Use: None Drug Use: None - RESPIRATORY Hx Respiratory Disorders: Yes Hx Bronchitis: Yes Comment:: uses an inhaler - CARDIOVASCULAR Hx Cardio Disorders: Yes Hx Edema: Yes (in the summer) Hx Hypertension: Yes Comment:: on cholesterol rx - NEURO Hx Neuro Disorders: No - GI Hx GI Disorders: Yes Hx Reflux: Yes Hx of Polyps: Yes Comment:: diarrhea after eating since gallbladder removed - Hx Genitourinary Disorders: No - ENDOCRINE Hx Endocrine Disorders: No - MUSCULOSKELETAL Hx Musculoskeletal Disorders: Yes Hx Arthritis: Yes (RA) Hx Back Injury: Yes (2016) - PSYCH Hx Psych Problems: No - HEMATOLOGY/ONCOLOGY Hx Hematology/Oncology Disorders: No Family Medical History Any Significant Family History?: Yes Hx Alcohol Use: Father Hx Cancer: Brother/Sister *Cancer Comment: sister-age 22 uterine Hx Dementia: Mother Hx Diabetes: Father Hx Heart Disease: Mother *Heart Comment: CHF Hx HTN: Mother Hx Resp Disorders: Mother *Resp Comment: lung mass- no cancer Physical Exam - General General Appearance: Alert, Oriented x3, Cooperative, No acute distress Limitations: No limitations - Head Head exam: Atraumatic, Normocephalic, Normal inspection - Eye Eye exam: Normal appearance, PERRL. negative: Conjunctival injection, Scleral icterus - ENT ENT exam: Mucous membranes moist, Normal orophraynx, TM's normal bilaterally Ear exam: Normal external inspection Nasal Exam: Discharge (nasal erythema and raw irritated mucosa), Sinus tenderness Mouth exam: Normal external inspection Teeth exam: Normal inspection Throat exam: Tonsillar erythema. negative: Tonsillomegaly, Tonsillar exudate, R peritonsillar mass, L peritonsillar mass - Neck Neck exam: Normal inspection, Full ROM - Respiratory Respiratory exam: Normal lung sounds bilaterally. negative: Accessory muscle use, Chest wall tenderness, Decreased breath sounds, Prolonged expiratory, Respiratory distress, Rhonchi, Stridor, Wheezes - Cardiovascular Cardiovascular Exam: Regular rate, Normal rhythm, Normal heart sounds Peripheral Pulses: 2+: Radial (R), Radial (L) - GI/Abdominal GI/Abdominal exam: Soft. negative: Tenderness - Rectal Rectal exam: Deferred - exam: Deferred - Extremities Extremities exam: Normal inspection. negative: Calf tenderness, Pedal edema, Tenderness - Back Back exam: Denies: CVA tenderness (R), CVA tenderness (L) - Neurological Neurological exam: Alert, Oriented X3 - Psychiatric Psychiatric exam: Normal affect, Normal mood - Skin Skin exam: Dry, Intact, Normal color, Warm Course Vital Signs 12/05/17 12:42 Temperature 98.3 F Pulse Rate 91 H Respiratory 20 Rate Blood Pressure 155/90 Pulse Ox 96 - Reevaluation(s) Reevaluation #1: Vitals reviewed No tachycardia, no hypoxia, no fever 12/05/17 12:54 12/05/17 13:21 No acute changes on the CBC The influenza are negative 12/05/17 13:27 No acute changes on the BMP 12/05/17 13:48 The strep is negative. 12/05/17 13:53 The labs were reviewed No acute changes We discussed the results of the tests and questions were answered at the time of discharge. The patient is doing well and is comfortable with DC. DC vitals were reviewed. We discussed at length reasons to immediately return to the ED as well as close follow up. The patient will call the PCP for close follow up of this ED visit to review this visit and the tests Medical Decision Making - Lab Data Result diagrams: 12/05/17 13:01 12/05/17 13:01 Disposition Disposition: Discharge Clinical Impression: Bronchitis Disposition: Home, Self-Care Condition: (1) Good Instructions: Acute Bronchitis (ED) Additional Instructions: Take the prescriptions provided today as directed. Call your family doctor. Call to schedule the next available appointment for a recheck. Return to ED if your symptoms worsen or if you have any new concerns. Review the final Emergency Record and test results with your doctor on follow up Prescriptions: Acetaminop W/ Codeine 300/30Mg [Tylenol #3] 1 tab PO Q6H #12 tab Forms: Patient Portal Access Time of Disposition: 13:56 Quality - Quality Measures Quality Measures: N/A - Blood Pressure Screening Does Patient Have Any of the Following: Active Dx of HTN Blood Pressure Classification: Hypertensive Reading Systolic Measurement: 155 Diastolic Measurement: 90 Screening for High Blood Pressure: Patient Exclusion, Hx of HTN [R9490]
[2017-12-05 13:09] LABS: BASO % 0.2 % (0-6); EOS % 0.8 % (0-6); HEMATOCRIT 37.7 % (35.0-47.0); HEMOGLOBIN 12.2 gm/dl (11.6-16.0); LYMPH % 21.1 % (16-45); MEAN CELL VOLUME 96.2 fl (81-97); MEAN CORPUSCULAR HEMOGLOBIN 31.1 pg (27-33); MEAN CORPUSCULAR HGB CONC 32.4 g/dl (32-36); MEAN PLATELET VOLUME 9.8 fl (7.4-10.4); MONO % 5.9 % (0-9); PLATELET COUNT 323 K/uL (130-400); RED BLOOD COUNT 3.92 M/uL (3.80-5.40); RED CELL DISTRIBUTION WIDTH 12.7 % (11.5-14.5); WHITE BLOOD COUNT W/O DIFF 8.3 K/uL (4.2-12.2)
[2017-12-05 13:20] LABS: INFLUENZA A NEGATIVE (NEGATIVE); INFLUENZA B NEGATIVE (NEGATIVE)
[2017-12-05 13:23] LABS: BLOOD UREA NITROGEN 9 mg/dL (8-23); CREATININE 0.5 mg/dL (0.5-0.9); EST GLOMERULAR FILTRATION RATE > 60 mL/min
[2017-12-05 13:26] LABS: GLUCOSE,RANDOM 116 mg/dL (74-109)
[2017-12-05 13:29] LABS: STREP A SCREEN NEGATIVE (NEGATIVE)
== END 2017-12-05 14:04 | disposition home or self-care (01) ==
LOC: ER 12:36
DX: J20.9 Acute bronchitis, unspecified (principal); R19.7 Diarrhea, unspecified; I10 Essential (primary) hypertension; J44.9 Chronic obstructive pulmonary disease, unspecified; F17.210 Nicotine dependence, cigarettes, uncomplicated
CPT/HCPCS: 99284 ×2; 96374; 96361; 85025; 80048; 87880; 87400; J2405

== ENCOUNTER 2018-01-06 12:37 | Day surgery (SDC) | payer BC ==
[2018-01-06] MEDS ORDERED: PROPOFOL 10 MG/ML VIAL IV ONE (12:38)
[2018-01-06] MEDS ORDERED: LIDOCAINE 2% MDV (20MG/ML) 20ML VIAL IV ONE (12:38)
--- NOTE | 2018-01-09 11:30 | Operative Note ---
DATE OF SURGERY: 01/06/2018 SURGEON: Leigha Chilel MD OPERATION: COLONOSCOPY. INDICATIONS: This is a 62-year-old female with history of average risk for colorectal cancer who presented for screening colonoscopy. POSTOPERATIVE DIAGNOSES: 1. Multiple lipomatous lesions in the left colon. 2. Otherwise normal colon and terminal ileal mucosa. ANESTHESIA: Sedation is per Anesthesia. Pulse oximetry was monitored throughout the procedure to maintain O2 saturation of 90% or greater. Supplemental oxygen was administered via nasal cannula. Cardiac and vital signs were monitored throughout the duration of the procedure, and they were stable. The procedure of colonoscopy and risks and alternatives of the procedure, including the risk of bleeding and perforation, among others, were explained to the patient who voiced understanding and agreed to have the procedure done. Physical examination was performed, and the patient was found stable for sedation. PROCEDURE: The patient was placed in the left lateral position. Sedation was initiated. A digital rectal exam was performed and showed some mild external hemorrhoids with no palpable rectal masses. An Olympus PCF-180AL colonoscope was then inserted into the rectum under direct visualization. It was advanced to the cecum without difficulty. The ileocecal valve and appendiceal orifice were identified and photographed. The colonic mucosa was carefully examined upon introduction of the colonoscope. There were multiple lipomatous lesions in the right colon. There were no other lesions noted. The colonoscope was then withdrawn while carefully examining the colonic mucosal surfaces. No other lesions were noted. In the rectum, retroflexion was performed and grade 1 internal hemorrhoids were noted. The colonoscope was then withdrawn and the procedure was terminated. The patient tolerated the procedure well without any immediate complications. The patient remained with stable vital signs and was transferred to the recovery room. RECOMMENDATIONS: 1. The patient should be on a high-fiber diet. 2. The patient is to have a repeat colonoscopy for screening in 10 years. Thank you for allowing me to participate in the care of your patient. CC: DO JASON Hutchins
== END 2018-01-06 14:08 | disposition home or self-care (01) ==
LOC: EEVIPCON 12:37 → HOP 12:37
PROVIDERS: ATTEND Internal Medicine Gastroenterology
DX: Z12.11 Encounter for screening for malignant neoplasm of colon (principal); D17.79 Benign lipomatous neoplasm of other sites; I10 Essential (primary) hypertension; E78.00 Pure hypercholesterolemia, unspecified; K21.9 Gastro-esophageal reflux disease without esophagitis
CPT/HCPCS: 00812; G0121

== ENCOUNTER 2018-06-30 07:54 | Emergency (ER) | payer BC ==
--- NOTE | 2018-06-30 08:03 | Emergency Department Record ---
History of Present Illness - General Stated complaint: RASH Time Seen by Provider: 06/30/18 07:57 Source: Patient Mode of Arrival: Ambulatory Limitations: No limitations - History of Present Illness Initial comments: 62 yo female presents with an uncomfortable rash on the right upper back. The rash is erythematous and slightly raised. No fevers, chills, cough. She has had shingles in the past. No other current symptoms. She is on [place] and Methotrexate for RA. MD complaint: Rash -: Days(s) Hx Tetanus Toxoid Vaccination: Yes Year of Tetanus Vaccination: unkown Location: Back Severity: Moderate Quality: Aching Consistency: Constant Improves with: None Worsens with: None Context: None Associated symptoms: Denies other symptoms Treatments Prior to Arrival: None - Related Data Previous Rx's Medication Instructions Recorded Famciclovir 500 mg PO TID #21 tablet 06/30/18 Hydrocodone/APAP 5/325Mg [[place] 1 each PO Q6H #12 tab 06/30/18 5Mg/325Mg] Allergies Allergy/AdvReac Type Severity Reaction Status Date / Time No Known Drug Intolerances Allergy Unknown NONE Verified 06/30/18 08:01 Review of Systems Constitutional: Denies: Chills, Fever, Malaise, Weakness Eyes: Denies: Eye discharge ENT: Denies: Congestion, Throat pain Respiratory: Denies: Cough Cardiovascular: Denies: Chest pain, Syncope Endocrine: Denies: Fatigue Gastrointestinal: Denies: Abdominal pain, Diarrhea, Nausea, Vomiting Genitourinary: Denies: Dysuria, Urgency Musculoskeletal: Reports: Back pain. Denies: Arthralgia, Myalgia Skin: Reports: Change in color, Rash. Denies: Bruising Neurological: Denies: Confusion, Headache, Weakness Psychiatric: Denies: Anxiety Hematological/Lymphatic: Denies: Easy bleeding, Easy bruising, Swollen glands Past Medical History - SOCIAL HISTORY Smoking Status: Light tobacco smoker (<10/day) Drug Use: None - RESPIRATORY Hx Respiratory Disorders: Yes Hx Bronchitis: Yes Comment:: uses an inhaler - CARDIOVASCULAR Hx Cardio Disorders: Yes Hx Edema: Yes (in the summer) Hx Hypertension: Yes Comment:: on cholesterol rx - NEURO Hx Neuro Disorders: No - GI Hx GI Disorders: Yes Hx Reflux: Yes Hx of Polyps: Yes Comment:: diarrhea after eating since gallbladder removed - Hx Genitourinary Disorders: No - ENDOCRINE Hx Endocrine Disorders: No - MUSCULOSKELETAL Hx Musculoskeletal Disorders: Yes Hx Arthritis: Yes (RA) Hx Back Injury: Yes (2017) - PSYCH Hx Psych Problems: No - HEMATOLOGY/ONCOLOGY Hx Hematology/Oncology Disorders: No Family Medical History Hx Alcohol Use: Father Hx Cancer: Brother/Sister *Cancer Comment: sister-age 22 uterine Hx Dementia: Mother Hx Diabetes: Father Hx Heart Disease: Mother *Heart Comment: CHF Hx HTN: Mother Hx Resp Disorders: Mother *Resp Comment: lung mass- no cancer Physical Exam - General General Appearance: Alert, Oriented x3, Cooperative, No acute distress Limitations: No limitations - Head Head exam: Atraumatic, Normal inspection - Eye Eye exam: Normal appearance, PERRL. negative: Conjunctival injection, Scleral icterus - ENT ENT exam: Normal exam Ear exam: Normal external inspection Nasal Exam: Normal inspection Mouth exam: Normal external inspection - Neck Neck exam: Normal inspection - Respiratory Respiratory exam: Normal lung sounds bilaterally. negative: Respiratory distress - Cardiovascular Cardiovascular Exam: Regular rate, Normal rhythm, Normal heart sounds - Rectal Rectal exam: Deferred - exam: Deferred - Extremities Extremities exam: Normal inspection, Tenderness. negative: Pedal edema Image of Full Body: 1 - erythematous, slightly raises patch, likely early shingles - Back Back exam: Denies: Normal inspection - Neurological Neurological exam: Alert, Normal gait, Oriented X3. negative: Altered, Motor sensory deficit - Psychiatric Psychiatric exam: Normal affect, Normal mood - Skin Skin exam: Erythema, Rash Distribution of rash: Back (Upper right back) Course - Reevaluation(s) Reevaluation #1: The rash is likely consistent with early shingles Rx provided 06/30/18 08:00 Disposition Disposition: Discharge Clinical Impression: Shingles Qualifiers: Herpes zoster complications: without complications Qualified Code(s): B02.9 - Zoster without complications Disposition: Home, Self-Care Condition: (1) Good Instructions: Shingles (ED) Additional Instructions: Call your doctor for the next available follow up appointment Return to the ER for a recheck if worse, any new concerns or questions Take the prescriptions provided as directed Review this ER visit and the tests performed with your family doctor Prescriptions: Famciclovir 500 mg PO TID #21 tablet Hydrocodone/APAP 5/325Mg [[place] 5Mg/325Mg] 1 each PO Q6H #12 tab Forms: Patient Portal Access Time of Disposition: 08:02 Quality - Quality Measures Quality Measures: N/A - Blood Pressure Screening Does Patient Have Any of the Following: No Blood Pressure Classification: Normal BP Reading Systolic Measurement: 101 Diastolic Measurement: 68 Screening for High Blood Pressure: < Normal BP, F/U Not Required > [G8783]
== END 2018-06-30 08:16 | disposition home or self-care (01) ==
LOC: ER 07:54
DX: B02.9 Zoster without complications (principal); I10 Essential (primary) hypertension; F17.210 Nicotine dependence, cigarettes, uncomplicated
CPT/HCPCS: 99282

== ENCOUNTER 2018-07-05 17:44 | Emergency (ER) | payer BC ==
--- NOTE | 2018-07-05 17:56 | Emergency Department Record ---
History of Present Illness - General Chief Complaint: Recheck - Other Stated Complaint: WORK CLEARANCE Time Seen by Provider: 07/05/18 17:52 Source: Patient, RN notes reviewed - History of Present Illness Initial Comments: here to get clear to go back to work and the shingles rash has dried up Onset/Timin -: Days(s) Returns Today for: Wound recheck Symptoms Since Prior Visit: No new symptoms Associated Symptoms: None - Related Data Previous Rx's Medication Instructions Recorded Famciclovir 500 mg PO TID #21 tablet 06/30/18 Hydrocodone/APAP 5/325Mg [[place] 1 each PO Q6H #12 tab 06/30/18 5Mg/325Mg] Allergies Allergy/AdvReac Type Severity Reaction Status Date / Time No Known Drug Intolerances Allergy Unknown NONE Verified 06/30/18 08:01 Travel Screening - Travel/Exposure Within Last 30 Days Have you traveled within the last 30 days?: No - Travel/Exposure Within Last Year Have you traveled outside the [place] in the last year?: No - Additonal Travel Details Have you been exposed to anyone with a communicable illness?: No Review of Systems Reviewed: No additional complaints except as noted below Constitutional: Reports: As per HPI. Denies: Chills, Fever, Malaise, Night sweats, Weakness, Weight change Eyes: Reports: As per HPI. Denies: Eye discharge, Eye pain, Photophobia, Vision change ENT: Reports: As per HPI. Denies: Congestion, Dental pain, Ear pain, Epistaxis , Hearing loss, Throat pain Respiratory: Reports: As per HPI. Denies: Cough, Dyspnea, Hemoptysis, Stridor, Wheezes Cardiovascular: Reports: As per HPI. Denies: Arrhythmia, Chest pain, Dyspnea on exertion, Edema, Murmurs, Orthopnea, Palpitations, Paroxysmal nocturnal dyspnea, Rheumatic Fever, Syncope Endocrine: Reports: As per HPI. Denies: Fatigue, Heat or cold intolerance, Polydipsia, Polyuria Gastrointestinal: Reports: As per HPI. Denies: Abdominal pain, Constipation, Diarrhea, Hematemesis, Hematochezia, Melena, Nausea, Vomiting Genitourinary: Reports: As per HPI. Denies: Abnormal menses, Discharge, Dyspareunia, Dysuria, Frequency, Hematuria, Incontinence, Retention, Urgency Musculoskeletal: Reports: As per HPI. Denies: Arthralgia, Back pain, Gout, Joint swelling, Myalgia, Neck pain Skin: Reports: As per HPI. Denies: Bruising, Change in color, Change in hair/ nails, Lesions, Pruritus, Rash Neurological: Reports: As per HPI. Denies: Abnormal gait, Confusion, Headache, Numbness, Paresthesias, Seizure, Tingling, Tremors, Vertigo, Weakness Psychiatric: Reports: As per HPI. Denies: Anxiety, Auditory hallucinations, Depression, Homicidal thoughts, Suicidal thoughts, Visual hallucinations Hematological/Lymphatic: Reports: As per HPI. Denies: Anemia, Blood Clots, Easy bleeding, Easy bruising, Swollen glands Past Medical History - SOCIAL HISTORY Smoking Status: Current every day smoker Alcohol Use: None Drug Use: None - RESPIRATORY Hx Respiratory Disorders: Yes Hx Bronchitis: Yes Comment:: uses an inhaler - CARDIOVASCULAR Hx Cardio Disorders: Yes Hx Edema: Yes (in the summer) Hx Hypertension: Yes Comment:: on cholesterol rx - NEURO Hx Neuro Disorders: No - GI Hx GI Disorders: Yes Hx Reflux: Yes Hx of Polyps: Yes Comment:: diarrhea after eating since gallbladder removed - Hx Genitourinary Disorders: No - ENDOCRINE Hx Endocrine Disorders: No - MUSCULOSKELETAL Hx Musculoskeletal Disorders: Yes Hx Arthritis: Yes (RA) Hx Back Injury: Yes (2016) - PSYCH Hx Psych Problems: No - HEMATOLOGY/ONCOLOGY Hx Hematology/Oncology Disorders: No Family Medical History Any Significant Family History?: No Hx Alcohol Use: Father Hx Cancer: Brother/Sister *Cancer Comment: sister-age 22 uterine Hx Dementia: Mother Hx Diabetes: Father Hx Heart Disease: Mother *Heart Comment: CHF Hx HTN: Mother Hx Resp Disorders: Mother *Resp Comment: lung mass- no cancer Physical Exam - General General Appearance: Alert, Oriented x3, Cooperative, No acute distress - Head Head exam: Normal inspection - Eye Eye exam: Normal appearance, PERRL Pupils: Normal accommodation - ENT ENT exam: Normal exam, Mucous membranes moist, Normal external ear exam, Normal orophraynx, TM's normal bilaterally Ear exam: Normal external inspection. negative: External canal tenderness Nasal Exam: Normal inspection. negative: Discharge, Sinus tenderness Mouth exam: Normal external inspection, Tongue normal Teeth exam: Normal inspection. negative: Dental caries Throat exam: Normal inspection. negative: Tonsillar erythema, Tonsillar exudate - Neck Neck exam: Normal inspection, Full ROM. negative: Tenderness - Respiratory Respiratory exam: Normal lung sounds bilaterally. negative: Respiratory distress - Cardiovascular Cardiovascular Exam: Regular rate, Normal rhythm, Normal heart sounds - GI/Abdominal GI/Abdominal exam: Soft, Normal bowel sounds. negative: Tenderness - Rectal Rectal exam: Deferred - exam: Deferred - Extremities Extremities exam: Normal inspection, Full ROM, Normal capillary refill. negative: Tenderness - Back Back exam: Reports: Normal inspection, Full ROM. Denies: Muscle spasm, Rash noted, Tenderness - Neurological Neurological exam: Alert, Normal gait, Oriented X3, Reflexes normal - Psychiatric Psychiatric exam: Normal affect, Normal mood - Skin Skin exam: Dry, Intact, Other (scabbed ove rash) Course Vital Signs 07/05/18 17:45 Temperature 97.5 F L Pulse Rate 91 H Respiratory 16 Rate Blood Pressure 126/86 Pulse Ox 95 Disposition Clinical Impression: Shingles Qualifiers: Herpes zoster complications: without complications Qualified Code(s): B02.9 - Zoster without complications Disposition: Home, Self-Care Condition: (1) Good Instructions: Wound Healing and Your Diet (ED) Additional Instructions: may return to work and keep the rash covered when at work for two weeks follow up with family DrJessica Time of Disposition: 17:55 Quality - Quality Measures Quality Measures: N/A - Blood Pressure Screening Does Patient Have Any of the Following: No Blood Pressure Classification: Pre-Hypertensive BP Reading Systolic Measurement: 126 Diastolic Measurement: 86 Screening for High Blood Pressure: < Pre-Hypertensive BP, F/U Documented > [ [id number]] Pre-Hypertensive Follow-up Interventions: Referral to alternative/primary care provider.
== END 2018-07-05 17:59 | disposition home or self-care (01) ==
LOC: ER 17:44
DX: B02.9 Zoster without complications (principal)
CPT/HCPCS: 99281

== ENCOUNTER 2018-11-16 10:36 | Emergency (ER) | payer SELFPAY ==
--- NOTE | 2018-11-16 10:56 | Emergency Department Record ---
History of Present Illness - General Chief Complaint: Fall Injury Stated Complaint: FALL/ARM INJURY Time Seen by Provider: 11/16/18 10:48 Source: Patient Mode of Arrival: Ambulatory Limitations: No limitations - History of Present Illness Initial Comments: The patient is here due to an injury that occurred at work. She was walking down a hallway and tripped falling onto her R shoulder. The patient denied hitting her head or any neck pain or injury. Since she has had R shoulder pain. There is no CP, SOB, leg, back or hip pain. The patient states there is significant pain with ROM of the R shoulder. MD Complaint: Fall Onset/Timin -: Minutes(s) Fall From: Standing When Fall Occurred: Just prior to arrival Fall Witnessed: Yes, by bystander Place Fall Occurred: Work Loss of Consciousness: None Prolonged Down Time?: No Symptoms Prior to Fall: None Associated Symptoms: Denies - [place] Coma Scale Eye Response: (4) Open spontaneously Motor Response: (6) Obeys commands Verbal Response: (5) Oriented [place] Total: 15 - Related Data Previous Rx's Medication Instructions Recorded Cyclobenzaprine HCl [Flexeril] 10 mg PO TID #30 tablet 10/01/18 Naproxen [Naprosyn] 500 mg PO BID #30 tablet 10/01/18 Allergies Allergy/AdvReac Type Severity Reaction Status Date / Time No Known Drug Intolerances Allergy Unknown NONE Verified 11/16/18 10:39 Travel Screening - Travel/Exposure Within Last 30 Days Have you traveled within the last 30 days?: No Review of Systems Constitutional: Denies: Chills, Fever ENT: Denies: Congestion Respiratory: Denies: Cough Cardiovascular: Denies: Arrhythmia Past Medical History - SOCIAL HISTORY Smoking Status: Current every day smoker Alcohol Use: None Drug Use: None - RESPIRATORY Hx Respiratory Disorders: Yes Hx Bronchitis: Yes Comment:: uses an inhaler - CARDIOVASCULAR Hx Cardio Disorders: Yes Hx Edema: Yes (in the summer) Hx Hypertension: Yes Comment:: on cholesterol rx - NEURO Hx Neuro Disorders: No - GI Hx GI Disorders: Yes Hx Reflux: Yes Hx of Polyps: Yes - Hx Genitourinary Disorders: No - ENDOCRINE Hx Endocrine Disorders: No - MUSCULOSKELETAL Hx Musculoskeletal Disorders: Yes Hx Arthritis: Yes (RA) Hx Back Injury: Yes (2016) - PSYCH Hx Psych Problems: No - HEMATOLOGY/ONCOLOGY Hx Hematology/Oncology Disorders: No Family Medical History Any Significant Family History?: Yes Hx Alcohol Use: Father Hx Cancer: Brother/Sister *Cancer Comment: sister-age 22 uterine Hx Dementia: Mother Hx Diabetes: Father Hx Heart Disease: Mother *Heart Comment: CHF Hx HTN: Mother Hx Resp Disorders: Mother *Resp Comment: lung mass- no cancer Physical Exam - General General Appearance: Alert, Oriented x3, Cooperative, No acute distress - Head Head exam: Atraumatic, Normocephalic - Eye Eye exam: Normal appearance, PERRL - Neck Neck exam: Normal inspection, Full ROM. negative: Tenderness - Respiratory Respiratory exam: Normal lung sounds bilaterally. negative: Respiratory distress - Cardiovascular Cardiovascular Exam: Regular rate, Normal rhythm, Normal heart sounds - GI/Abdominal GI/Abdominal exam: Soft, Normal bowel sounds. negative: Tenderness - Extremities Extremities exam: Normal inspection (There is no swelling, bruising, or erythema appreciated.), Normal capillary refill, Tenderness (There is mild R proximal humerus tenderness.), Other (The R arm is NVI.). negative: Full ROM (There is decreased ROM of the R shoulder but the patient is able to abduct to 90 degrees. ) Course Vital Signs 11/16/18 10:43 Temperature 97.5 F L Pulse Rate 104 H Respiratory 20 Rate Blood Pressure 132/83 Pulse Ox 95 - Reevaluation(s) Reevaluation #1: The patient is doing better but is still having pain to the R shoulder with ROM. She is able to abduct to 90 degrees. I did explain to her that the xrays are neg for fx but she could possibly have a rotator cuff injury. She is to use an arm sling and see her PCP early next week for recheck. 11/16/18 11:49 Medical Decision Making - Data Complexity MDM Data: X-Ray Ordered and/or Reviewed - Radiology Data Radiology results: Report reviewed (R shoulder: Neg for fx or dislocation. Reduced subacromial space, possibly seen in rotator cuff injury.) Disposition Disposition: Discharge Clinical Impression: Acute pain of right shoulder Disposition: Home, Self-Care Condition: (2) Stable Instructions: Shoulder Sprain (ED) Additional Instructions: Please wear the R arm sling for 5 days and use Tylenol for pain. Please see your family doctor for recheck early next week. Forms: Patient Portal Access Time of Disposition: 11:51 Quality - Quality Measures Quality Measures: N/A - Blood Pressure Screening View Details: Yes Does Patient Have Any of the Following: No Blood Pressure Classification: Pre-Hypertensive BP Reading Systolic Measurement: 132 Diastolic Measurement: 83 Screening for High Blood Pressure: < Pre-Hypertensive BP, F/U Documented > [G8950] Pre-Hypertensive Follow-up Interventions: Referral to alternative/primary care provider.
[2018-11-16] MEDS: ACETAMINOPHEN 325 MG TAB PO ONE (11:01)
[2018-11-16 14:32] LABS: AMPHETAMINE SCREEN URINE NOT DETECTED; BARBITURATE SCREEN URINE NOT DETECTED; BENZODIAZEPINE SCREEN URINE NOT DETECTED; COCAINE SCREEN URINE NOT DETECTED; METHADONE SCREEN URINE NOT DETECTED; METHAMPHETAMINE SCREEN NOT DETECTED; OPIATE SCREEN URINE NOT DETECTED; OXYCODONE SCREEN URINE NOT DETECTED; PHENCYCLIDINE SCREEN URINE NOT DETECTED; PROPOXYPHENE SCREEN URINE NOT DETECTED; THC SCREEN URINE NOT DETECTED; TRICYCLIC ANTIDEPRESSANT SCRN NOT DETECTED
--- NOTE | 2018-11-17 08:41 | RADIOLOGY REPORT ---
EXAM: RIGHT SHOULDER, THREE VIEWS HISTORY: ACUTE LATERAL PROXIMAL RIGHT SHOULDER/HUMERAL PAIN STATUS POST FALL. TECHNIQUE: Three views of the right shoulder were obtained. Comparison: Chest x-ray conducted on 12/02/17. FINDINGS: Mild to moderate degenerative changes of the right glenohumeral and acromioclavicular joints are present. Decreased right subacromial space is present as seen in rotator cuff tears. No acute displaced fracture or dislocation is identified. IMPRESSION: 1. NO ACUTE DISPLACED FRACTURE OR DISLOCATION. MODERATE DEGENERATIVE CHANGES. 2. DECREASED SUBACROMIAL SPACE SEEN IN ROTATOR CUFF TEARS. JOB NUMBER: [id number] [facility]
== END 2018-11-16 11:58 | disposition home or self-care (01) ==
LOC: ER 10:36
DX: G89.11 Acute pain due to trauma (principal); M25.511 Pain in right shoulder; W01.198A Fall on same level from slipping, tripping and stumbling with subsequent striking against other object, initial encounter; Y93.E9 Activity, other interior property and clothing maintenance; Y92.238 Other place in hospital as the place of occurrence of the external cause; Y99.0 Civilian activity done for income or pay; I10 Essential (primary) hypertension; F17.210 Nicotine dependence, cigarettes, uncomplicated
CPT/HCPCS: 80305; 99283; 99284

== ENCOUNTER 2019-01-27 10:56 | Emergency (ER) | payer BC, OTHER ==
[2019-01-27] MEDS ORDERED: IPRATROPIUM/ALBUTEROL (0.5MG/3MG) NEB INH ONE (11:45)
--- NOTE | 2019-01-27 11:54 | Emergency Department Record ---
History of Present Illness - General Chief complaint: ENT Stated complaint: ENT Time Seen by Provider: 01/27/19 11:41 Source: Patient Mode of Arrival: Ambulatory Limitations: No limitations - History of Present Illness Initial comments: pt has been sick for 2 weeks and is getting worse. she has productive yellow cough, sob, body aches. congestion. MD complaint: Sore throat Onset/Timin -: Week(s) Severity: Moderate Improves with: None Worsens with: None Associated Symptoms: Cough, Rhinorrhea, Sore throat - Related Data Previous Rx's Medication Instructions Recorded Cyclobenzaprine HCl [Flexeril] 10 mg PO TID #30 tablet 10/01/18 Naproxen [Naprosyn] 500 mg PO BID #30 tablet 10/01/18 Azithromycin [Zithromax] 250 mg PO DAILY #6 tab 01/27/19 Allergies Allergy/AdvReac Type Severity Reaction Status Date / Time No Known Drug Intolerances Allergy Unknown NONE Verified 01/27/19 11:39 Travel Screening - Travel/Exposure Within Last 30 Days Have you traveled within the last 30 days?: No Review of Systems Reviewed: No additional complaints except as noted below Constitutional: Reports: As per HPI. Denies: Chills, Fever, Malaise, Night sweats, Weakness, Weight change Eyes: Reports: As per HPI. Denies: Eye discharge, Eye pain, Photophobia, Vision change ENT: Reports: As per HPI, Congestion. Denies: Dental pain, Ear pain, Epistaxis, Hearing loss, Throat pain Respiratory: Reports: As per HPI, Cough, Dyspnea. Denies: Hemoptysis, Stridor, Wheezes Cardiovascular: Reports: As per HPI. Denies: Arrhythmia, Chest pain, Dyspnea on exertion, Edema, Murmurs, Orthopnea, Palpitations, Paroxysmal nocturnal dyspnea, Rheumatic Fever, Syncope Endocrine: Reports: As per HPI. Denies: Fatigue, Heat or cold intolerance, Polydipsia, Polyuria Gastrointestinal: Reports: As per HPI. Denies: Abdominal pain, Constipation, Diarrhea, Hematemesis, Hematochezia, Melena, Nausea, Vomiting Genitourinary: Reports: As per HPI. Denies: Abnormal menses, Discharge, Dyspareunia, Dysuria, Frequency, Hematuria, Incontinence, Retention, Urgency Musculoskeletal: Reports: As per HPI. Denies: Arthralgia, Back pain, Gout, Joint swelling, Myalgia, Neck pain Skin: Reports: As per HPI. Denies: Bruising, Change in color, Change in hair/nails, Lesions, Pruritus, Rash Neurological: Reports: As per HPI. Denies: Abnormal gait, Confusion, Headache, Numbness, Paresthesias, Seizure, Tingling, Tremors, Vertigo, Weakness Psychiatric: Reports: As per HPI. Denies: Anxiety, Auditory hallucinations, Depression, Homicidal thoughts, Suicidal thoughts, Visual hallucinations Hematological/Lymphatic: Reports: As per HPI. Denies: Anemia, Blood Clots, Easy bleeding, Easy bruising, Swollen glands Past Medical History - SOCIAL HISTORY Smoking Status: Current every day smoker Alcohol Use: None Drug Use: None - RESPIRATORY Hx Respiratory Disorders: Yes Hx Bronchitis: Yes - CARDIOVASCULAR Hx Cardio Disorders: Yes Hx Edema: Yes Hx Hypertension: Yes Comment:: high cholesterol - NEURO Hx Neuro Disorders: No - GI Hx GI Disorders: Yes Hx Reflux: Yes Hx of Polyps: Yes - Hx Genitourinary Disorders: No - ENDOCRINE Hx Endocrine Disorders: No - MUSCULOSKELETAL Hx Musculoskeletal Disorders: Yes Hx Arthritis: Yes (RA) Hx Back Injury: Yes (2017) - PSYCH Hx Psych Problems: No - HEMATOLOGY/ONCOLOGY Hx Hematology/Oncology Disorders: No Family Medical History Any Significant Family History?: Yes Hx Alcohol Use: Father Hx Cancer: Brother/Sister *Cancer Comment: sister-age 22 uterine Hx Dementia: Mother Hx Diabetes: Father Hx Heart Disease: Mother *Heart Comment: CHF Hx HTN: Mother Hx Resp Disorders: Mother *Resp Comment: lung mass- no cancer Physical Exam - General General Appearance: Alert, Oriented x3, Cooperative, Mild distress - Head Head exam: Normal inspection - Eye Eye exam: Normal appearance, PERRL, EOMI Pupils: Normal accommodation - ENT ENT exam: Normal exam, Mucous membranes moist, Normal external ear exam, Normal orophraynx Ear exam: Normal external inspection. negative: External canal tenderness Nasal Exam: Normal inspection. negative: Discharge, Sinus tenderness Mouth exam: Normal external inspection, Tongue normal Teeth exam: Normal inspection. negative: Dental caries Throat exam: Normal inspection. negative: Tonsillar erythema, Tonsillar exudate - Neck Neck exam: Normal inspection, Full ROM. negative: Tenderness - Respiratory Respiratory exam: Wheezes. negative: Respiratory distress - Cardiovascular Cardiovascular Exam: Regular rate, Normal rhythm, Normal heart sounds - GI/Abdominal GI/Abdominal exam: Soft, Normal bowel sounds. negative: Tenderness - Rectal Rectal exam: Deferred - exam: Deferred - Extremities Extremities exam: Normal inspection, Full ROM, Normal capillary refill. negative: Tenderness - Back Back exam: Reports: Normal inspection, Full ROM. Denies: Muscle spasm, Rash noted, Tenderness - Neurological Neurological exam: Alert, CN II-XII intact, Normal gait, Oriented X3 - Psychiatric Psychiatric exam: Normal affect, Normal mood - Skin Skin exam: Dry, Intact, Normal color, Warm Course Vital Signs 01/27/19 11:28 Temperature 98.0 F Pulse Rate 86 Respiratory 22 Rate Blood Pressure 136/93 Pulse Ox 94 L Disposition Disposition: Discharge Clinical Impression: Acute bronchitis with COPD Disposition: Home, Self-Care Condition: (1) Good Instructions: Acute Bronchitis (ED), COPD (Chronic Obstructive Pulmonary Disease) (ED) Additional Instructions: follow up with family doctor. return sooner if worse. Prescriptions: Azithromycin [Zithromax] 250 mg PO DAILY #6 tab Forms: Patient Portal Access Quality - Quality Measures Quality Measures: N/A - Blood Pressure Screening Does Patient Have Any of the Following: Active Dx of HTN Blood Pressure Classification: Hypertensive Reading Systolic Measurement: 136 Diastolic Measurement: 93 Screening for High Blood Pressure: Patient Exclusion, Hx of HTN [G9744]
[2019-01-27 12:09] LABS: INFLUENZA A NEGATIVE (NEGATIVE); INFLUENZA B NEGATIVE (NEGATIVE)
--- NOTE | 2019-01-27 12:45 | RADIOLOGY REPORT ---
EXAMINATION: Two View Chest Radiographs EXAM DATE: 01/27/2019 12:13 PM TECHNIQUE: Frontal and lateral views INDICATION: cough COMPARISON: None available at the time of interpretation. ENCOUNTER: Not applicable FINDINGS: There is an increase in interstitial markings noted. Otherwise, the lungs are clear without large opa city, pneumothorax, or pleural effusion. The cardiac size is normal. Postsurgical changes are present in the right upper abdomen and there our spinal stimulation leads present in the thoracic spine. IMPRESSION: No acute cardiopulmonary process. Dictated by: Eneida Barfield DO on 01/27/2019 12:40 PM. .
== END 2019-01-27 13:37 | disposition home or self-care (01) ==
LOC: ER 10:56
DX: J20.9 Acute bronchitis, unspecified (principal); J44.0 Chronic obstructive pulmonary disease with (acute) lower respiratory infection; I10 Essential (primary) hypertension; F17.210 Nicotine dependence, cigarettes, uncomplicated
CPT/HCPCS: 71046; 87400; 94640; 99284